=== PATIENT | female | born 1975 | race Caucasian/White ===

== ENCOUNTER 2021-02-11 11:43 | Outpatient (CLI) | payer BC | END 2021-02-11 11:44 | disposition home or self-care (01) | LOC: CSHLAB 11:43 | PROVIDERS: ATTEND Obstetrics & Gynecology | DX: Z01.812 Encounter for preprocedural laboratory examination (principal); Z20.822 Contact with and (suspected) exposure to COVID-19; Z53.9 Procedure and treatment not carried out, unspecified reason | CPT/HCPCS: 84703; 85027; 86850; 86900; 86901; U0003; U0005 ==

== ENCOUNTER 2021-02-16 05:42 | Day surgery (SDC) | payer BC ==
[2021-02-11 12:50] LABS: Hemoglobin 12.6 g/dL (12.0-15.5); Mean Corpuscular HGB CONC 33.5 g/dL (32.0-36.0); Mean Corpuscular Hemoglobin 29.2 pg (27.0-33.0); Mean Corpuscular Volume 87.2 fl (81.6-98.3); Mean Platelet Volume 9.6 fl (7.4-10.4); Platelet Count 294 10x3/uL (150-450); RBC Distribution Width 12.7 % (11.5-14.5); Red Blood Cell (RBC) Count 4.31 10x6/uL (3.90-5.03); White Blood Cell (WBC) Count 8.2 10x3/uL (3.5-10.5)
[2021-02-11 12:54] LABS: BHCG - Serum Negative (NEGATIVE); Pregs Control Background? CLEAR/WHITE (CLR/WHITE); Pregs Control Bar Appear? YES (CONTROL BAR)
[2021-02-11 23:10] LABS: SARS-CoV-2 PCR by NAA Not Detected (NotDetected)
[2021-02-12 13:41] VITALS: BMI 28.4
[2021-02-16] MEDS ORDERED: Bupivacaine PF 0.5% 30 ML VIAL ONE (06:45)
[2021-02-16] MEDS ORDERED: EPINEPHrine 1 MG/ML AMP ONE (06:45)
[2021-02-16] MEDS ORDERED: Fentanyl 100 MCG/2 ML VIAL ONE (06:46)
[2021-02-16] MEDS ORDERED: Ferric Subsulfate (ASTRINGYN) 8 GM VIAL ONE ×2 (06:46→16:05)
[2021-02-16] MEDS ORDERED: Ondansetron PF 4 MG/2 ML Vial ONE (06:46)
[2021-02-16] MEDS ORDERED: Lidocaine 1% PF 5 ML VIAL ONE (06:46)
[2021-02-16] MEDS ORDERED: PROPOFOL 20 ML ONE (06:46)
[2021-02-16] MEDS ORDERED: Dexamethasone 4 mg/ml Vial ONE (06:47)
[2021-02-16] MEDS ORDERED: Ketorolac Tromethamine 30 MG/ML VIAL ONE (06:47)
[2021-02-16] MEDS ORDERED: Potassium Iodide Solution 14 ML BOT ONE (16:05)
== END 2021-02-16 08:55 | disposition home or self-care (01) ==
LOC: CSHSDC 05:42
PROVIDERS: ATTEND Obstetrics & Gynecology
PROC: 0UBC7ZX Excision of Cervix, Via Natural or Artificial Opening, Diagnostic (ICD-10-PCS; principal; 2021-02-16)
DX: N87.0 Mild cervical dysplasia (principal); R87.810 Cervical high risk human papillomavirus (HPV) DNA test positive; Z98.890 Other specified postprocedural states
CPT/HCPCS: 84703; 85027; 86850; 86900; 86901; 88305; 88307; J0171; J0690; J1100; J1885; J2405; J2704; J3010; S0020; U0003; U0005